=== PATIENT | male | born 2000 | race Caucasian/White ===

== ENCOUNTER 2024-04-27 15:32 | Emergency (ER) | payer OTHER ==
[~2024-04-27] VITALS: Ht 175.3 cm; Wt 75.0 kg
[2024-04-27 15:43] VITALS: BP 126/78; PULSE 98; RESP 16; TEMP 36.8; O2SAT 99
[2024-04-27 19:56] LABS: BASOPHILS % 0.6 % (0.0-2.0); EOSINOPHILS % 1.4 % (0.0-5.0); HEMATOCRIT. 49.3 % (42.0-52.0); HEMOGLOBIN. 16.3 g/dL (14.0-18.0); LYMPHOCYTES % 20.3 % (20.0-50.0); MEAN CORPUSCULAR HEMOGLOBIN 28.9 pg (28.0-32.0); MEAN CORPUSCULAR VOLUME 87.6 fL (80.0-94.0); MEAN PLATELET VOLUME 8.1 fl (7.4-10.4); MONOCYTES % 7.3 % (2.0-8.0); NEUTROPHILS % 70.4 % (40.0-76.0); PLATELET 203 x1000/uL (130-400); RED BLOOD CELL COUNT 5.63 mill/uL (4.7-6.1); RED CELL DISTRIBUTION WIDTH 14.3 % (11.6-14.6); WHITE BLOOD COUNT 6.8 x1000/uL (4.5-11.0)
[2024-04-27 20:11] LABS: CHLORIDE 107 mEq/L (98-107); POTASSIUM 3.7 mEq/L (3.5-5.1); SODIUM 141 mEq/L (136-145)
[2024-04-27 20:12] LABS: CALCIUM 9.8 mg/dL (8.7-10.4); CARBON DIOXIDE 24 mEq/L (21-32)
[2024-04-27 20:15] LABS: D-DIMER < 0.19 mg/L FEU (<0.50); PARTIAL THROMBOPLASTIN TIME 27.9 sec (23.4-31.0); PROTHROMBIN TIME 11.2 sec (9.6-11.0)
[2024-04-27 20:17] LABS: CREATININE 0.9 mg/dL (0.6-1.3); ETHANOL BLOOD < 10 mg/dL (<10); GLUCOSE 91 mg/dL (70-105); UREA NITROGEN BLOOD 9 mg/dL (9-23)
[2024-04-27 20:19] LABS: ACETAMINOPHEN < 2 ug/mL (10-30)
[2024-04-27 20:26] LABS: TROPONIN I HIGH SENSITIVITY < 4 ng/L (3.0-53)
[2024-04-28] MEDS ORDERED: IBUP-2029 MT (01:03)
[2024-04-28] MEDS ORDERED: ACET-2708 MT (07:34)
== END 2024-04-27 21:56 | disposition home or self-care (01) ==
LOC: ER 15:32
DX: R07.89 Other chest pain (principal)
CPT/HCPCS: 80048; 80307; 80329; 80320; 80165; 85025; 85379; 85610; 85730; 84484; 36415; 71045; 93005; 99285; Z7610; G0480

== ENCOUNTER 2024-04-28 00:56 | Emergency (ER) | payer OTHER ==
[~2024-04-28] VITALS: Ht 180.3 cm; Wt 85.0 kg
[2024-04-28 01:02] VITALS: BP 133/78; PULSE 84; RESP 16; TEMP 36.8; O2SAT 97
[2024-04-28] MEDS ORDERED: IBUP-2029 MT (01:03)
[2024-04-28] MEDS ORDERED: ACET-2708 MT (07:34)
== END 2024-04-28 01:28 | disposition home or self-care (01) ==
LOC: ER 01:09
DX: R07.9 Chest pain, unspecified (principal); Z76.5 Malingerer [conscious simulation]
CPT/HCPCS: 99283

== ENCOUNTER 2024-04-28 02:56 | Emergency (ER) | payer OTHER ==
[~2024-04-28] VITALS: Ht 170.2 cm; Wt 80.0 kg
[~2024-04-28 02:56] MED LIST: IBUP-2029 MT
[2024-04-28 04:09] VITALS: O2SAT 97
[2024-04-28 04:29] VITALS: BP 134/91; PULSE 68; RESP 16; TEMP 36.6; O2SAT 97
[2024-04-28 05:19] LABS: BASOPHILS % 0.8 % (0.0-2.0); EOSINOPHILS % 1.8 % (0.0-5.0); LYMPHOCYTES % 21.3 % (20.0-50.0); MEAN CORPUSCULAR HEMOGLOBIN 28.8 pg (28.0-32.0); MEAN CORPUSCULAR HGB CONC 33.4 g/dL (31.0-37.0); MEAN CORPUSCULAR VOLUME 86.2 fL (80.0-94.0); MEAN PLATELET VOLUME 7.8 fl (7.4-10.4); MONOCYTES % 9.2 % (2.0-8.0); NEUTROPHILS % 66.9 % (40.0-76.0); PLATELET 227 x1000/uL (130-400); RED BLOOD CELL COUNT 5.92 mill/uL (4.7-6.1); RED CELL DISTRIBUTION WIDTH 14.3 % (11.6-14.6); WHITE BLOOD COUNT 7.8 x1000/uL (4.5-11.0)
[2024-04-28 05:28] LABS: CHLORIDE 108 mEq/L (98-107); POTASSIUM 3.7 mEq/L (3.5-5.1); SODIUM 142 mEq/L (136-145)
[2024-04-28 05:29] LABS: CALCIUM 10.1 mg/dL (8.7-10.4); CARBON DIOXIDE 23 mEq/L (21-32)
[2024-04-28 05:34] LABS: CREATININE 0.8 mg/dL (0.6-1.3); GLUCOSE 91 mg/dL (70-105); UREA NITROGEN BLOOD 10 mg/dL (9-23)
[2024-04-28 05:36] LABS: ALANINE AMINOTRANSFERASE 20 IU/L (10-49); ASPARTATE AMINOTRANSFERASE 16 IU/L (<34); BILIRUBIN DIRECT 0.2 mg/dL (<=3.0); BILIRUBIN TOTAL 0.5 mg/dL (0.1-1.0); PROTEIN TOTAL 8.3 g/dL (6.0-8.3)
[2024-04-28] MEDS ORDERED: HYDROCODONE/ACETAMINOPHEN 10/325MG TABLET PO NR (07:00)
[2024-04-28] MEDS ORDERED: ONDANSETRON 4MG ODT PO NR (07:00)
[2024-04-28 07:06] VITALS: TEMP 97.9
[2024-04-28] MEDS: ACETAMINOPHEN 325MG TABLET PO ONE (07:06)
[2024-04-28] MEDS ORDERED: ACET-2708 MT (07:34)
== END 2024-04-28 08:50 | disposition home or self-care (01) ==
LOC: ER 02:56
DX: R10.84 Generalized abdominal pain (principal)
CPT/HCPCS: 36415; 74176; 80048; 80076; 85025; 86850; 86900; 99284

== ENCOUNTER 2024-04-28 09:24 | Emergency (ER) | payer OTHER ==
[~2024-04-28] VITALS: Ht 180.3 cm; Wt 105.0 kg
[~2024-04-28 09:24] MED LIST changes: +ACET-2708 MT
[2024-04-28 09:32] VITALS: BP 122/71; PULSE 83; RESP 16; TEMP 37.1; O2SAT 99
== END 2024-04-28 11:53 | disposition left against medical advice (07) ==
LOC: ER 09:24
DX: R07.0 Pain in throat (principal); Z53.21 Procedure and treatment not carried out due to patient leaving prior to being seen by health care provider